=== PATIENT | female | born 1935 | race Two or more races ===

== ENCOUNTER 2017-07-24 12:30 | Outpatient (RCR) | payer OTHER, MEDICAID ==
[~2017-07-24 12:30] MED LIST: AMITRIPTYLINE25 MG ORAL; ATIVAN1 MG ORAL; ECOTRIN81 MG PO; ENALAPRIL MALEA20 MG ORAL; GLIPIZIDE ER2.5 MG PO; JANUVIA100 MG ORAL; METFORMIN HCL1000 M1 ORAL; OMEPRAZOLE40 M1 ORAL
== END 2017-08-12 | disposition home or self-care (01) ==
LOC: PTY 12:30
DX: M25.511 Pain in right shoulder (principal); M25.512 Pain in left shoulder; R29.6 Repeated falls